=== PATIENT | male | born 1990 | race Caucasian/White ===

== ENCOUNTER 2016-12-26 00:42 | Emergency (ER) | payer SELFPAY ==
[2016-12-26 00:45] VITALS: O2SAT 100
--- NOTE | 2016-12-26 01:25 | ERPHSYRPT ---
- History of Present Illness Time Seen by Provider: 12/26/16 01:04 Source: patient Exam Limitations: no limitations Patient Subjective Stated Complaint: pt was seen at [facility] er for narcotic withdrawal. states after he was given medication there, he started having muscle spasms. states nasuea and vomiting has improved since being seen in [facility] er Triage Nursing Assessment: pt alert and oriented, answers qeustiosn approp. pt abmulatory with steady gait noted. resp nonlabored with lungs cta. skin pink warm and dry. pt with spasms in arm and neck. pt restless in room and states he is unable to sit in bed. Physician History: The patient is a 26-year-old male with his girlfriend who complains of muscle twitching after being seen at [facility] ER and treated for opioid withdrawal. He has been abusing opioids for 9 years and quit one week ago. He was given IV fluids, Zofran, Bentyl, and clonidine. He began to have muscle twitching while at [facility] and was given Benadryl. He was also given prescriptions which he did not fill. Prior to arrival at [facility] he had some nausea but no vomiting or diarrhea. He states that he wants something to stop the muscle twitching so he can go to sleep. Timing/Duration: today Severity: mild Modifying Factors: Improves With: other Associated Symptoms: denies symptoms Allergies/Adverse Reactions: No Known Drug Allergies Allergy (Unverified 12/26/16 00:59) Home Medications: No Home Meds 12/26/16 [History] Hx Tetanus, Diphtheria Vaccination/Date Given: Yes Hx Influenza Vaccination/Date Given: No Hx Pneumococcal Vaccination/Date Given: No Immunizations Up to Date: Yes - Review of Systems Constitutional: No Fever, No Chills Eyes: No Symptoms Ears, Nose, & Throat: No Symptoms Respiratory: No Cough, No Dyspnea Cardiac: No Chest Pain, No Edema, No Syncope Abdominal/Gastrointestinal: No Abdominal Pain, No Nausea, No Vomiting, No Diarrhea Genitourinary Symptoms: No Dysuria Musculoskeletal: Other (twitching) Skin: No Rash Neurological: No Dizziness, No Focal Weakness, No Sensory Changes Psychological: No Symptoms Endocrine: No Symptoms Hematologic/Lymphatic: No Symptoms Immunological/Allergic: No Symptoms All Other Systems: Reviewed and Negative - Past Medical History Respiratory History: Asthma - Past Surgical History Past Surgical History: Yes Musculoskeletal: Orthopedic Surgery Other Surgical History: orif of clavicle, mediastinum d/t infection - Social History Smoking Status: Never smoker Exposure to second hand smoke: No Drug Use: narcotics Patient Lives Alone: No - Nursing Vital Signs Nursing Vital Signs: Initial Vital Signs Temperature 98.1 F Temperature Source Oral Pulse Rate 61 Respiratory Rate 16 Blood Pressure [Right Arm] 148/80 Pain Intensity 0 - Physical Exam General Appearance: no apparent distress, alert Eye Exam: PERRL/EOMI, eyes nml inspection Ears, Nose, Throat Exam: normal ENT inspection, TMs normal, pharynx normal, moist mucous membranes Neck Exam: normal inspection, non-tender, supple, full range of motion Respiratory Exam: normal breath sounds, lungs clear, No respiratory distress Cardiovascular Exam: regular rate/rhythm, normal heart sounds, normal peripheral pulses Gastrointestinal/Abdomen Exam: soft, normal bowel sounds, No tenderness, No mass Rectal Exam: not done Back Exam: normal inspection, normal range of motion, No CVA tenderness, No vertebral tenderness Extremity Exam: normal inspection, normal range of motion, pelvis stable Neurologic Exam: alert, oriented x 3, cooperative, normal mood/affect, nml cerebellar function, nml station & gait, sensation nml, other (During the first part of the interview, the patient was calm without any involuntary muscular movement being observed. When the topic of twitching was brought up, he began to quickly twitch the bilateral pectoralis muscles. When distracted, the twitching ceased.), No motor deficits Skin Exam: normal color, warm, dry, No rash, No diaphoresis Lymphatic Exam: No adenopathy SpO2 Interpretation: normal SpO2: 100 Oxygen Delivery: Room Air - Progress Progress: unchanged Progress Note: 12/26/16 01:33 Discussions with the patient included the drugs that he was given at [facility]. These included Benadryl, Zofran, clonidine, and Bentyl. We discussed options here. He has prescriptions given to him at discharge at [facility] that include Zofran and clonidine. One option is for him to drive to an overnight pharmacy and obtain his prescriptions. Another option was to provide him with a Phenergan injection and Benadryl injection. He opted for the Phenergan and Benadryl injection here. Counseled pt/family regarding: diagnosis - Departure Time of Disposition: 01:35 Departure Disposition: Home Clinical Impression: Muscle twitching Condition: Stable Critical Care Time: No Additional Instructions: After 9 years of opioid use, he reports that you have been not taking opioids for over one week. You were treated appropriately at another ER. The muscle twitching that you are exhibiting is minor. You were given Phenergan 50 mg and Benadryl 50 mg IM in our ER. I suggest that you obtain the medicines that were prescribed to you at the other ER. Good luck and use the support of your girlfriend.
[2016-12-26] MEDS ORDERED: BENADRYL 50 MG/ML ONE (01:29)
[2016-12-26] MEDS ORDERED: Phenergan 25 MG INJ ONE (01:29)
[2016-12-26] MEDS ORDERED: Phenergan 25 MG INJ IM ONE (01:35)
[2016-12-26] MEDS ORDERED: BENADRYL 50 MG/ML IM ONE (01:36)
[2016-12-26 02:04] VITALS: BP 128/83; PULSE 58
== END 2016-12-26 02:04 | disposition home or self-care (01) ==
LOC: ED 00:42
DX: R25.3 Fasciculation (principal)
CPT/HCPCS: 96372; 99284; J1200; J2550

== ENCOUNTER 2017-01-18 17:57 | Emergency (ER) | payer SELFPAY ==
[2017-01-18 18:10] VITALS: BP 150/112; PULSE 69; O2SAT 100
--- NOTE | 2017-01-18 18:17 | ERPHSYRPT ---
- History of Present Illness Time Seen by Provider: 01/18/17 18:12 Source: patient, family Exam Limitations: no limitations Patient Subjective Stated Complaint: pt states he thinks he got some metal in his left eye thursday night. then states he thinks he got some transmission oil in his left eye. on pt states that he has continued to have pain and tearing in left eye. Triage Nursing Assessment: pt alert warm and dry resp easy non labored redness and swelling noted to left eye. Physician History: pt states he thinks he got some metal in his left eye Thursday night then states he thinks he got some transmission oil in his left eye on Thursday patient states that he has continued to have pain and tearing in left eye. light bothers him Timing/Duration: day(s) (2 days ago- didnot seek medical attention due to no health insurance) Location: left eye Severity: moderate Apparent Injury: yes Associated Symptoms: pain, sensitivity to light, foreign body sensation, blurred vision, No eyelid swelling, No double vision Visual Assistive Devices: Glasses Chemical Exposure: Yes (probably yesterday) Treatment at Time of Chemical Exposure: ? eyewash at home Trauma: No Welding Arc/Tanning Bed Exposure: No Allergies/Adverse Reactions: No Known Drug Allergies Allergy (Unverified 12/26/16 00:59) Home Medications: No Home Meds 12/26/16 [History] Hx Tetanus, Diphtheria Vaccination/Date Given: No (thinks is up to date) Hx Influenza Vaccination/Date Given: No Hx Pneumococcal Vaccination/Date Given: No Immunizations Up to Date: Yes - Review of Systems Constitutional: No Symptoms Eyes: Eye Pain, Eye Redness, Photophobia, Tearing, Foreign Body Sensation, No Vision Changes, No Double Vision Ears, Nose, & Throat: No Symptoms - Past Medical History Pertinent Past Medical History: No Respiratory History: Asthma - Past Surgical History Past Surgical History: Yes Musculoskeletal: Orthopedic Surgery Other Surgical History: tonsils,collar bone - Social History Smoking Status: Never smoker Exposure to second hand smoke: No Drug Use: none Patient Lives Alone: No - Nursing Vital Signs Nursing Vital Signs: Initial Vital Signs Temperature 98.6 F Temperature Source Oral Pulse Rate 69 Respiratory Rate 18 Blood Pressure [Right Arm] 150/112 Pain Intensity 7 - Physical Exam General Appearance: no apparent distress Vision Acuity Degree Evaluation Phase: Corrected Eye Exam: left eye: conjunctival hemorrhage, conjunctival inflammation, erythema , bilateral eye: normal inspection, PERRL, EOMI Ears, Nose, Throat Exam: normal ENT inspection SpO2: 100 Oxygen Delivery: Room Air - Course Nursing assessment & vital signs reviewed: Yes Ordered Tests: Medication Summary Generic Name Dose Route Start Last Admin Trade Name Eileen PRN Reason Stop Dose Admin Tobramycin/Dexamethasone 2 ml 01/18/17 18:15 Tobradex Eye Drops OP 02/17/17 18:14 Q4H ZENAIDA - Progress Progress: unchanged Counseled pt/family regarding: diagnosis, need for follow-up - Departure Time of Disposition: 18:18 Departure Disposition: Home Clinical Impression: Eye injury, superficial Qualifiers: Encounter type: initial encounter Laterality: left Qualified Code(s): S05.8X2A - Other injuries of left eye and orbit, initial encounter Condition: Stable Critical Care Time: No Referrals: DOCTOR,NO FAMILY [Primary Care Provider] - Instructions: Eye Pain Additional Instructions: EYE PROBLEM 1. If a patch is applied, your vision will be impaired. Do not drive. 2. The more you rest your good eye, the better your affected eye will feel. 3. Use any eye drops or ointments as prescribed by the emergency room physician. 4. See your family physician or return to the emergency department for any increasing pain or decreased vision. 5. Use good hygiene and keep eye clean. 6. Do not rub the eye. Please follow the instructions given to you. Please take your medication as prescribed if given. If symptoms recur or get worse, come back to the emergency room if you cannot reach your primary care physician, or call your primary care physician for an appointment. Again if your symptoms get worse, come back to the emergency room. Thanks for visiting emergency room, and let us take care of you.
== END 2017-01-18 18:35 | disposition home or self-care (01) ==
LOC: ED 17:57
DX: S05.8X2A Other injuries of left eye and orbit, initial encounter (principal); H11.32 Conjunctival hemorrhage, left eye
CPT/HCPCS: 99283; A9270-GY

== ENCOUNTER 2017-01-21 17:28 | Emergency (ER) | payer SELFPAY ==
[2017-01-21] MEDS ORDERED: Rocephin 1000 MG INJ IM ONE (17:47)
[2017-01-21 17:49] VITALS: O2SAT 99
--- NOTE | 2017-01-21 17:54 | ERPHSYRPT ---
- History of Present Illness Time Seen by Provider: 01/21/17 17:30 Source: patient, family Exam Limitations: no limitations Physician History: patient exposed to gonorrhea this week and now symptomatic; d/c and discomfort; no prior hx; no other complaints Timing/Duration: yesterday (symptoms), day(s) (exposed), gradual onset Activites at Onset: sexual activity Quality: burning Onset Location: unknown Pain Radiation: none Severity of Pain-Max: none Severity of Pain-Current: none Modifying Factors: Improves With: nothing Associated Symptoms: dysuria, other (d/c) Prior abdominal problems: none Sexual intercourse history: less than 2 months ago, unprotected intercourse Allergies/Adverse Reactions: No Known Drug Allergies Allergy (Unverified 12/26/16 00:59) Home Medications: No Home Meds 12/26/16 [History] Hx Tetanus, Diphtheria Vaccination/Date Given: No (thinks is up to date) Hx Influenza Vaccination/Date Given: No Hx Pneumococcal Vaccination/Date Given: No - Past Medical History Pertinent Past Medical History: No Respiratory History: Asthma - Past Surgical History Past Surgical History: Yes Musculoskeletal: Orthopedic Surgery Other Surgical History: tonsils,collar bone - Social History Smoking Status: Never smoker Exposure to second hand smoke: No Alcohol Use: Socially Drug Use: none Patient Lives Alone: No Significant Family History: no pertinent family hx - Review of Systems Constitutional: No Symptoms Eyes: No Symptoms Ears, Nose, & Throat: No Symptoms Respiratory: No Cough, No Dyspnea, No Wheezing Cardiac: No Chest Pain, No Palpitations, No Syncope Abdominal/Gastrointestinal: No Abdominal Pain, No Nausea, No Vomiting, No Diarrhea Genitourinary Symptoms: Dysuria, Penile Discharge Musculoskeletal: No Symptoms Skin: No Symptoms Neurological: No Symptoms Psychological: No Symptoms Endocrine: No Symptoms Hematologic/Lymphatic: No Symptoms Immunological/Allergic: No Symptoms - Physical Exam General Appearance: mild distress, alert, thin Eye Exam: PERRL/EOMI, eyes nml inspection, No photophobia Ears, Nose, Throat Exam: normal ENT inspection, TMs normal, pharynx normal, moist mucous membranes Neck Exam: normal inspection, non-tender, supple, full range of motion Respiratory Exam: normal breath sounds, lungs clear, airway intact, No chest tenderness, No respiratory distress Cardiovascular Exam: regular rate/rhythm, normal heart sounds, normal peripheral pulses, capillary refill <2 sec, No murmur Gastrointestinal/Abdomen Exam: soft, normal bowel sounds, No tenderness, No organomegaly Rectal Exam: deferred Male Genital Exam: normal genitalia, circumcised, No no hernia, No epididymal tenderness, No lesions, No urethral discharge Back Exam: normal inspection, normal range of motion, No CVA tenderness Extremity Exam: normal inspection, normal range of motion, No pedal edema Neurologic Exam: alert, oriented x 3, cooperative, senior front end engineer II-XII nml as tested, normal mood/affect, nml cerebellar function, nml station & gait Skin Exam: normal color, warm, dry, No rash Lymphatic Exam: No adenopathy - Course Nursing assessment & vital signs reviewed: Yes Ordered Tests: Active Orders 24 hr Category Date Time Status Re-Check Vital Signs STAT Care 01/21/17 17:47 Ordered Medication Summary Generic Name Dose Route Start Last Admin Trade Name Freq PRN Reason Stop Dose Admin Ceftriaxone Sodium 2,000 mg 01/21/17 17:47 Rocephin 1000 Mg Inj IM 01/21/17 17:48 STAT ONE - Progress Progress Note: 01/21/17 17:52 discussed treatment options; will use injectable Rocephin and recheck; instructions given Counseled pt/family regarding: diagnosis, need for follow-up - Departure Time of Disposition: 18:05 Departure Disposition: Home Clinical Impression: STD (male) Condition: Stable Critical Care Time: No Additional Instructions: Follow-up with family doctor as directed. Call for appointment. Return if any problems. If you smoke please stop. Call or follow up with your family doctor for assistance if you need it to stop. Please wear your seatbelt when driving. Have a nice day. Thank you for allowing us to participate in your care today. :o) Dr Victor Manuel Chery
[2017-01-21] MEDS ORDERED: Rocephin 1000 MG INJ ONE (17:55)
[2017-01-21] MEDS ORDERED: XYLOCAINE 1% HCL 20 ML MDV ONE (17:55)
[2017-01-21 18:27] VITALS: BP 125/98; PULSE 72
== END 2017-01-21 18:24 | disposition home or self-care (01) ==
LOC: ED 17:28
DX: A64 Unspecified sexually transmitted disease (principal); R30.0 Dysuria; R36.9 Urethral discharge, unspecified
CPT/HCPCS: 96372; 99284; J0696

== ENCOUNTER 2017-05-26 21:11 | Emergency (ER) | payer SELFPAY ==
[2017-05-26] MEDS ORDERED: NORCO 5/325 MG PO ONE ×2 (21:30)
[2017-05-26] MEDS ORDERED: Rocephin 1000 MG INJ IM ONE (21:30)
[2017-05-26] MEDS ORDERED: NORCO 5/325 MG ONE ×2 (21:35→21:37)
[2017-05-26] MEDS ORDERED: Rocephin 1000 MG INJ ONE (21:35)
--- NOTE | 2017-05-26 21:36 | ERPHSYRPT ---
- History of Present Illness Time Seen by Provider: 05/26/17 21:24 Patient Subjective Stated Complaint: pt states for the last 4 days he has had a cough and sore throat. Triage Nursing Assessment: pt alert and oriented, answers questions approp. pt ambultory with steady gait noted. respirations nonlabored with lungs cta. skin pink warm and dry. redness noted to throat. mucus membranes pink and moist. Physician History: FOR THE PAST 4 DAYS PT HAS HAD HEADACHE, EARACHES, SORE THROAT AND COUGH PRODUCTIVE OF GREEN PHLEGM; FOR THE PAST 3 DAYS VOMITING X8; FOR THE PAST 2 DAYS FEVER UP TO 99.7 DEGREES AND DIARRHEA X3 WITHOUT BLOOD. Allergies/Adverse Reactions: No Known Drug Allergies Allergy (Verified 05/26/17 21:27) Hx Tetanus, Diphtheria Vaccination/Date Given: Yes (thinks is up to date) Hx Influenza Vaccination/Date Given: Yes Hx Pneumococcal Vaccination/Date Given: No Immunizations Up to Date: Yes - Review of Systems Constitutional: Fever Ears, Nose, & Throat: Ear Pain Respiratory: Cough Abdominal/Gastrointestinal: Vomiting, Diarrhea Neurological: Headache All Other Systems: Reviewed and Negative - Past Medical History Pertinent Past Medical History: No Respiratory History: Asthma Other Medical History: asthma as child - Past Surgical History Past Surgical History: Yes Musculoskeletal: Orthopedic Surgery Other Surgical History: tonsils,collar bone - Social History Smoking Status: Never smoker Exposure to second hand smoke: No Alcohol Use: Socially Drug Use: none Patient Lives Alone: No Significant Family History: no pertinent family hx - Nursing Vital Signs Nursing Vital Signs: Initial Vital Signs Temperature 97.8 F 05/26/17 21:16 Pulse Rate 83 05/26/17 21:16 Respiratory Rate 16 05/26/17 21:16 Blood Pressure 160/90 05/26/17 21:16 O2 Sat by Pulse Oximetry 100 05/26/17 21:16 Pain Scale Pain Intensity 4 - Physical Exam General Appearance: alert Eye Exam: PERRL/EOMI Ears, Nose, Throat Exam: moist mucous membranes, TM abnormal (L) (MILD LEFT TM ERYTHEMA), pharyngeal erythema, other (NASAL TURBINATES MILDLY EDEMATOUS AND ERYTHEMATOUS) Neck Exam: normal inspection Respiratory Exam: lungs clear Cardiovascular Exam: normal heart sounds Gastrointestinal/Abdomen Exam: soft, normal bowel sounds Back Exam: normal range of motion Extremity Exam: normal inspection, No pedal edema Neurologic Exam: alert, cooperative Skin Exam: warm, dry SpO2 Interpretation: normal SpO2: 100 Oxygen Delivery: Room Air - Course Nursing assessment & vital signs reviewed: Yes Ordered Tests: Medication Summary Generic Name Dose Route Start Last Admin Trade Name Christianq PRN Reason Stop Dose Admin Hydrocodone Bitart/Acetaminophen 2 tab 05/26/17 21:30 [place] 5/325 Mg PO 05/26/17 21:31 STAT ONE Ceftriaxone Sodium 1,000 mg 05/26/17 21:30 Rocephin 1000 Mg Inj IM 05/26/17 21:31 STAT ONE - Departure Time of Disposition: 21:38 Departure Disposition: Home Clinical Impression: PHARYNGITIS, LOM, SINUSITIS Condition: Stable Critical Care Time: No Referrals: CHINA MEYER [Primary Care Provider] - Instructions: Pharyngitis/Tonsillopharyngitis -- Adult, Vomiting -- Adult, Diarrhea and Traveler's Diarrhea -- Adult, Headache Additional Instructions: FOLLOW UP WITH PRIVATE DOCTOR TOMORROW. Prescriptions: Promethazine HCl 25 mg [Phenergan 25 mg] 25 mg PO Q4H PRN PRN #14 tablet PRN Reason: Nausea/Vomiting Naproxen [Naprosyn] 500 mg PO [id number] PRN #20 tablet PRN Reason: Pain Azithromycin 250 mg [Zithromax 250 MG TABLET] 250 mg PO ZPACK #6 tablet Cetirizine HCl [Zyrtec] 10 mg PO DAILY #10 tablet
[2017-05-26] MEDS ORDERED: XYLOCAINE 1% HCL 20 ML MDV ONE (21:47)
[2017-05-26 21:58] VITALS: BP 137/96; PULSE 78; O2SAT 99
== END 2017-05-26 21:58 | disposition home or self-care (01) ==
LOC: ED 21:11
DX: J02.9 Acute pharyngitis, unspecified (principal); H66.92 Otitis media, unspecified, left ear; J32.9 Chronic sinusitis, unspecified
CPT/HCPCS: 99284; J0696; A9270-GY